=== PATIENT | male | born 1980 | race Caucasian/White ===

== ENCOUNTER 2016-09-14 07:38 | Emergency (ER) | payer OTHER ==
[2016-09-14 08:19] LABS: Hematocrit 46.5 % (35.5-45.6); Hemoglobin 15.8 gm/dl (11.8-15.2); Mean Corpuscular HGB Conc 34 % (32-34); Mean Corpuscular Hemoglobin 32 pg (28-32); Mean Corpuscular Volume 95 fl (84-94); Platelet Count 244 K/mm3 (140-440); Red Cell Distribution Width 13.5 % (13.2-15.2); White Blood Count 5.9 K/mm3 (4.5-11.0)
[2016-09-14 08:36] LABS: Alanine Aminotransferase 13 units/L (7-56); Albumin 4.4 g/dL (3.9-5); Albumin/Globulin Ratio 1.3 %; Alkaline Phosphatase 72 units/L (35-129); Anion Gap 18 mmol/L; BUN/Creatinine Ratio 9.23; Blood Urea Nitrogen 12 mg/dL (9-20); Calcium 8.9 mg/dL (8.4-10.2); Carbon Dioxide 24 mmol/L (22-30); Chloride 95.3 mmol/L (98-107); Glucose 115 mg/dL (75-100); Lipase 18 units/L (13-60); Potassium 3.9 mmol/L (3.6-5.0); Sodium 133 mmol/L (137-145); Total Protein 7.8 g/dL (6.3-8.2)
[2016-09-14 08:37] LABS: INR 1.01 (0.87-1.13)
[2016-09-14 08:39] LABS: Partial Thromboplastin Time 33.9 Sec. (24.2-36.6)
[2016-09-14 08:50] LABS: Bilirubin,Urine NEG (Negative); Blood,Urine NEG (Negative); Ketones,Urine NEG (Negative); Leukocyte Esterase,Urine NEG (Negative); Nitrite,Urine NEG (Negative); Urobilinogen,Urine < 2.0 mg/dL (<2.0)
[2016-09-14 09:21] LABS: Basophils % (Manual) 0 % (0.0-1.8); Blastocytes % (Manual) 0 %
[2016-09-14 09:22] LABS: Diff Status Complete; RBC Morphology Normal
[2016-09-14 09:32] LABS: Bacteria,Urine 1+ /HPF (Negative); RBC,Urine < 1.0 /HPF (0.0-6.0); WBC,Urine < 1.0 /HPF (0.0-6.0)
[2016-09-14] MEDS ORDERED: NACL 0.9% 500 ML 500 ML IV ONE (10:21)
[2016-09-14] MEDS ORDERED: ZOFRAN IV ONE (10:21)
--- NOTE | 2016-09-14 10:26 | Emergency Department Report ---
ED N/V/D HPI - General Chief complaint: Nausea/Vomiting/Diarrhea Stated complaint: ABD PAIN Time Seen by Provider: 09/14/16 10:04 Source: patient Mode of arrival: Ambulatory Limitations: No Limitations - History of Present Illness Initial comments: 36-year-old male with no past medical history is presenting to the ED complaining of nausea/vomiting/diarrhea. Onset of symptoms started 3 days prior to ED arrival. Patient denies inciting factors such as travel, or abnormal food exposure. Patient denies sick contacts. Patient states the nausea and vomiting has been nonbloody and non bilious. Patient states he has multiple episodes of diarrhea that was watery and light brown however prior to ED arrival he did notice blood on tissue paper after he wiped. No blood seen in the toilet. Patient endorses diffuse abdominal pain that is crampy in nature , intermittent, no relaxing or worsening factors. Patient denies: Fever/chills , chest pain. MD complaint: nausea, vomiting, diarrhea, abdominal pain Onset/Timin -: days(s) Description of Vomiting: food contents Description of Diarrhea: water Location: diffuse Radiation: none Severity: mild Quality: cramping Consistency: intermittent Worsens with: none Associated Symptoms: denies other symptoms, nausea/vomiting. denies: myalgias, chest pain, headaches, loss of appetite, malaise, shortness of breath, syncope, weakness - Related Data Previous Rx's Medication Instructions Recorded Last Taken Type Ciprofloxacin [Ciprofloxacin ORAL 500 mg PO Q12H #20 ml 09/14/16 Unknown Rx LIQ] Dicyclomine [Bentyl] 10 mg PO QID #20 capsule 09/14/16 Unknown Rx Famotidine [Pepcid] 20 mg PO BID #20 tablet 09/14/16 Unknown Rx Ondansetron [Zofran Odt] 4 mg PO Q8HR #20 tab.rapdis 09/14/16 Unknown Rx Allergies Allergy/AdvReac Type Severity Reaction Status Date / Time sulfamethoxazole Allergy Anaphylaxis Verified 09/14/16 07:59 [From ] trimethoprim [From ] Allergy Anaphylaxis Verified 09/14/16 07:59 ED Review of Systems ROS: Stated complaint: ABD PAIN Other details as noted in HPI Constitutional: denies: chills, fever Eyes: denies: eye pain, eye discharge, vision change ENT: denies: ear pain, throat pain Respiratory: denies: cough, shortness of breath, wheezing Cardiovascular: denies: chest pain, palpitations Endocrine: no symptoms reported Gastrointestinal: abdominal pain, nausea, diarrhea. denies: constipation, hematemesis, hematochezia Genitourinary: denies: urgency, dysuria Musculoskeletal: denies: back pain, joint swelling, arthralgia Skin: denies: rash, lesions Neurological: denies: headache, weakness, paresthesias Psychiatric: denies: anxiety, depression Hematological/Lymphatic: denies: easy bleeding, easy bruising ED Past Medical Hx - Past Medical History Previous Medical History?: No - Surgical History Past Surgical History?: No - Social History Smoking Status: Current Every Day Smoker - Medications Home Medications: Home Medications Medication Instructions Recorded Confirmed Last Taken Type Ciprofloxacin [Ciprofloxacin ORAL 500 mg PO Q12H #20 ml 09/14/16 Unknown Rx LIQ] Dicyclomine [Bentyl] 10 mg PO QID #20 capsule 09/14/16 Unknown Rx Famotidine [Pepcid] 20 mg PO BID #20 tablet 09/14/16 Unknown Rx Ondansetron [Zofran Odt] 4 mg PO Q8HR #20 tab.rapdis 09/14/16 Unknown Rx ED Physical Exam - General Limitations: No Limitations General appearance: alert, in no apparent distress - Head Head exam: Present: atraumatic, normocephalic - Eye Eye exam: Present: normal appearance - ENT ENT exam: Present: mucous membranes moist - Neck Neck exam: Present: normal inspection - Respiratory Respiratory exam: Present: normal lung sounds bilaterally. Absent: respiratory distress - Cardiovascular Cardiovascular Exam: Present: regular rate, normal rhythm. Absent: systolic murmur, diastolic murmur, rubs, gallop - GI/Abdominal GI/Abdominal exam: Present: soft, normal bowel sounds. Absent: distended, tenderness, guarding, rebound, hyperactive bowel sounds (abdomen benign, non tender ), hypoactive bowel sounds, organomegaly, bruit, pulsatile mass, hernia - Rectal Rectal exam: Present: deferred - Extremities Exam Extremities exam: Present: normal inspection - Back Exam Back exam: Present: normal inspection - Neurological Exam Neurological exam: Present: alert, oriented X3 - Psychiatric Psychiatric exam: Present: normal affect, normal mood - Skin Skin exam: Present: warm, dry, intact, normal color. Absent: rash ED Course Vital Signs 09/14/16 09/14/16 07:59 09:52 Temperature 98.0 F Pulse Rate 88 Respiratory 16 16 Rate Blood Pressure 127/87 O2 Sat by Pulse 100 99 Oximetry - Reevaluation(s) Reevaluation #1: 09/14/16 11:09 Patient well-appearing, tolerating oral liquids and ED. ED Medical Decision Making - Lab Data Result diagrams: 09/14/16 08:07 09/14/16 08:07 - Medical Decision Making 36-year-old male with no past medical history is presented to the ED complaining of nausea/vomiting/diarrhea. Likely patient has gastroenteritis. Patient has no: Fever, tenderness on abdominal exam, nor leukocytosis. I have low suspicion to believe that his symptoms are secondary to acute condition such as: Appendicitis, cholecystitis, small bowel obstruction, diverticulitis, colitis. Repeat abdominal exam: soft, non tender. Patient admits his symptoms have improved while he was in ED, he is well-appearing, tolerating juice and a greasy stable discharge home. I have discussed return precautions with patient and patient verbalized understanding of return precautions. - Differential Diagnosis appendicitis, cholecystits, diveritculitis, pancreatitis, UTI Critical Care Time: No Critical care attestation.: If time is entered above; I have spent that time in minutes in the direct care of this critically ill patient, excluding procedure time. ED Disposition Clinical Impression: Nausea & vomiting, Diarrhea, Gastroenteritis Disposition: DC-01 TO HOME OR SELFCARE Is pt being admited?: No Does the pt Need Aspirin: No Condition: Stable Instructions: Gastroenteritis (ED), Acute Nausea and Vomiting (ED) Prescriptions: Ciprofloxacin [Ciprofloxacin ORAL LIQ] 500 mg PO Q12H #20 ml Dicyclomine [Bentyl] 10 mg PO QID #20 capsule Famotidine [Pepcid] 20 mg PO BID #20 tablet Ondansetron [Zofran Odt] 4 mg PO Q8HR #20 tab.jose ldis Referrals: PRIMARY CAREMD [Primary Care Provider] - 3-5 Days NEELAM ANDREW MD [Staff Physician] - 2-3 Days Forms: Work/School Release Form(ED) Time of Disposition: 11:18
[2016-09-14 12:10] VITALS: BP 115/69
== END 2016-09-14 12:10 | disposition home or self-care (01) ==
LOC: ED 07:38
DX: K52.9 Noninfective gastroenteritis and colitis, unspecified (principal); F17.200 Nicotine dependence, unspecified, uncomplicated
CPT/HCPCS: 36415; 80053; 81001; 83690; 85007; 85025; 85610; 85730; 86850; 86900; 86901; 96361; 96374; 99283; J2405; J7040